=== PATIENT | male | born 1980 | race American Indian/Alaskan Native ===

== ENCOUNTER 2020-01-30 20:28 | Emergency (ER) | payer SELFPAY ==
[2020-01-30] MEDS ORDERED: Sodium Chloride 0.9% 10 ML Syringe FLUSH PRN (21:03)
[2020-01-30 21:45] LABS: ANION GAP 14.8 mEq/L (7-13); CHLORIDE,CL 101 mmol/L (98-107); SODIUM,NA 137 mmol/L (136-145)
[2020-01-30] MEDS ORDERED: Iopamidol 612 MG/ML 100 ML Bottle IVPUSH ONE (21:46)
[2020-01-30] MEDS ORDERED: Dexamethasone 4 MG/ML SDV IVPUSH ONE (21:55)
[2020-01-30] MEDS ORDERED: Sodium Chloride 0.9% 1,000 ML IV ONE (21:55)
--- NOTE | 2020-01-30 21:55 | CT ---
PROCEDURE INFORMATION: Exam: CT Neck With Contrast Exam date and time: 01/30/2020 9:25 PM Age: 39 years old Clinical indication: Abscess, tonsil; Additional info: ? Right peritonsillar abscess TECHNIQUE: Imaging protocol: Computed tomography images of the neck with intravenous contrast. Radiation optimization: All CT scans at this facility use at least one of these dose optimization techniques: automated exposure control; mA and/or kV adjustment per patient size (includes targeted exams where dose is matched to clinical indication); or iterative reconstruction. Contrast material: [id number]; Contrast volume: 75 ml; Contrast route: INTRAVENOUS (IV); COMPARISON: No relevant prior studies available. FINDINGS: Sinuses: Paranasal sinuses are clear. Nasopharynx: Unremarkable. Oropharynx: Prominent right tonsillar fullness. This soft tissue fullness measures 4.4 x 4 cm. There is no liquefaction or discrete abscess evident. The left tonsillar structures unremarkable. Hypopharynx: Unremarkable. Larynx: Unremarkable. Normal epiglottis. Retropharyngeal space: Unremarkable. Submandibular/Parotid glands: Parotid glands show fatty involution. Thyroid: Normal. No enlarged or calcified nodules. Lymph nodes: Right carotid sheath lymph nodes noted to be enlarged. Multiple enlarged lymph nodes are noted. The largest is 18 x 17 mm. There is also enlargement of right-sided posterior cervical chain lymph nodes. Trachea: Visualized trachea is unremarkable. Lungs: Lung apices are clear. Bones/joints: Unremarkable. No acute fracture. Soft tissues: Soft tissues of the superficial neck region are unremarkable. Subcutaneous fat is clear. IMPRESSION: 1. Prominent right tonsillar fullness without evidence of liquefaction or abscess formation at this time. 2. Right-sided carotid sheath adenopathy and posterior cervical chain adenopathy. 3. Fatty involution of parotid glands.
[2020-01-30] MEDS ORDERED: cefTRIAXone 2 GM in Sodium Chloride 0.9% 100 ML IV ONE (21:56)
[2020-01-30] MEDS ORDERED: Lidocaine 2% Viscous Solution 15 ML Cup PO ONE (22:16)
--- NOTE | 2020-01-30 22:44 | EDM.PDOC ---
ED HPI GENERAL MEDICAL PROBLEM - General Chief Complaint: ENT Problem Stated Complaint: THROAT UNABLE TO TALK Time Seen by Provider: 01/30/20 21:10 Source of Information: Reports: Patient, RN, RN Notes Reviewed History Limitations: Reports: No Limitations, Intoxication - History of Present Illness INITIAL COMMENTS - FREE TEXT/NARRATIVE: She is a 39-year-old male here today for concern about throat pain. Patient believes he has strep throat. He reports 3 days of throat pain, as well as associated runny nose, occasionally as well as occasional cough. Patient also reports right ear pain. No shortness of breath. Pain is severe. Patient is on no medications and has no other significant past medical history and has no allergies. He does smoke cigarettes, with last smoking done today. No alcohol or marijuana use. Patient uses methamphetamine and last used yesterday. He lives in [place] with his ex-girlfriend. Onset: Gradual Throat Pain Score (Numeric/FACES): 5 - Related Data Allergies Allergy/AdvReac Type Severity Reaction Status Date / Time No Known Allergies Allergy Verified 01/30/20 20:49 Home Meds: Home Meds . [No Known Home Meds] 01/30/20 [History] Past Medical History - Past Health History Medical/Surgical History: Denies Medical/Surgical History Social & Family History - Family History Family Medical History: Noncontributory - Tobacco Use Smoking Status *Q: Current Every Day Smoker Years of Tobacco use: 20 Packs/Tins Daily: 1 - Caffeine Use Caffeine Use: Reports: None - Recreational Drug Use Recreational Drug Use: Yes Drug Use in Last 12 Months: Yes Recreational Drug Type: Reports: Methamphetamine Recreational Drug Use Frequency: Weekly ED ROS ENT - Review of Systems Review Of Systems: Comprehensive ROS is negative, except as noted in HPI. ED EXAM, ENT - Physical Exam Exam: See Below Exam Limited By: No Limitations General Appearance: Alert, WD/WN, Mild Distress Eye Exam: Bilateral Eye: EOMI, Normal Inspection Ears: Normal External Exam, Normal Canal, Hearing Grossly Normal, Normal TMs Nose: Normal Inspection, Normal Mucousa, No Blood Mouth/Throat: Bleeding, Muffled Voice, Peritonsillar Mass, Pharyngeal Erythema, Throat Pain, Throat Swelling, Tonsillar Erythema, Tonsillar Swelling (Right), Uvular Deviation, Uvular Edema Head: Atraumatic, Normocephalic Neck: Normal Inspection, Supple, Non-Tender, Full Range of Motion, Lymphadenopathy (R) Respiratory/Chest: No Respiratory Distress, Lungs Clear, Normal Breath Sounds, No Accessory Muscle Use, Chest Non-Tender Cardiovascular: Normal Peripheral Pulses, Regular Rate, Rhythm, No Edema, No Gallop, No JVD, No Murmur, No Rub GI/Abdominal: Normal Bowel Sounds, Soft, Non-Tender, No Organomegaly, No Distention, No Abnormal Bruit, No Mass (Male) Exam: Deferred Rectal (Males) Exam: Deferred Back: Normal Inspection, Full Range of Motion Extremities: Normal Inspection, Normal Range of Motion, Non-Tender, No Pedal Edema, Normal Capillary Refill Neurological: Alert, Oriented, CN II-XII Intact, Normal Cognition, Normal Gait, Normal Reflexes, No Motor/Sensory Deficits Psychiatric: Normal Affect Skin: Warm, Dry, Other (Several pimples on the arms bilaterally) Lymphatic: Adenopathy (Right anterior cervical) Course - Vital Signs Last Recorded V/S: Last Vital Signs Temp 98.1 F 01/30/20 20:45 Pulse 90 01/30/20 20:45 Resp 16 01/30/20 20:45 BP 149/85 H 01/30/20 20:45 Pulse Ox 95 01/30/20 20:45 - Orders/Labs/Meds Orders: Active Orders 24 hr Category Date Time Status CBC WITH AUTO DIFF [HEME] Stat Lab 01/30/20 21:14 Results CULTURE BLOOD [BC] Routine Lab 01/30/20 22:15 Received CULTURE BLOOD [BC] Routine Lab 01/30/20 22:15 Received MANUAL DIFFERENTIAL QA/NC [HEME] Stat Lab 01/30/20 21:14 Results Peripheral IV Insertion Adult [OM.PC] Stat Oth 01/30/20 21:03 Ordered Labs: Laboratory Tests 01/30/20 01/30/20 01/30/20 Range/Units 21:14 21:14 21:14 WBC 15.1 H (5.0-10.0) 10^3/uL RBC 4.42 L (4.6-6.2) 10^6/uL Hgb 14.0 (14.0-18.0) g/dL Hct 40.7 (40.0-54.0) % MCV 92.1 (80-100) fL MCH 31.7 (27.0-34.0) pg MCHC 34.4 (33.0-35.0) g/dL Plt Count 380 (150-450) 10^3/uL Neut % (Auto) 67.7 (42.2-75.2) % Lymph % (Auto) 16.0 L (20.5-50.1) % Craig % (Auto) 10.2 H (2-8) % Eos % (Auto) 5.8 H (1.0-3.0) % Baso % (Auto) 0.3 (0.0-1.0) % Add Manual Diff Yes Sodium 137 (136-145) mmol/L Potassium 3.8 (3.5-5.1) mmol/L Chloride 101 (98-107) mmol/L Carbon Dioxide 25 (21-32) mmol/L Anion Gap 14.8 H (7-13) mEq/L BUN 16 (7-18) mg/dL Creatinine 0.92 (0.70-1.30) mg/dL Est Cr Clr Drug Dosing 118.32 mL/min Estimated GFR (MDRD) > 60 BUN/Creatinine Ratio 17.4 (No establ ref range) Glucose 94 (74-99) mg/dL Lactic Acid 0.9 (0.4-2.0) mmol/L Calcium 8.7 (8.5-10.1) mg/dL Total Bilirubin 0.6 (0.2-1.0) mg/dL AST 70 H (15-37) U/L ALT 84 H (16-63) U/L Alkaline Phosphatase 85 (46-116) U/L Total Protein 8.3 H (6.4-8.2) g/dL Albumin 3.0 L (3.4-5.0) g/dL Globulin 5.3 Albumin/Globulin Ratio 0.57 Urine Opiates Screen (NEGATIVE) Ur Oxycodone Screen (NEGATIVE) Urine Methadone Screen (NEGATIVE) Ur Barbiturates Screen (NEGATIVE) U Tricyclic Antidepress (NEGATIVE) Ur Phencyclidine Scrn (NEGATIVE) Ur Amphetamine Screen (NEGATIVE) U Methamphetamines Scrn (NEGATIVE) Urine MDMA Screen (NEGATIVE) U Benzodiazepines Scrn (NEGATIVE) Urine Cocaine Screen (NEGATIVE) U Marijuana (THC) Screen (NEGATIVE) 01/30/20 Range/Units 21:55 WBC (5.0-10.0) 10^3/uL RBC (4.6-6.2) 10^6/uL Hgb (14.0-18.0) g/dL Hct (40.0-54.0) % MCV (80-100) fL MCH (27.0-34.0) pg MCHC (33.0-35.0) g/dL Plt Count (150-450) 10^3/uL Neut % (Auto) (42.2-75.2) % Lymph % (Auto) (20.5-50.1) % Craig % (Auto) (2-8) % Eos % (Auto) (1.0-3.0) % Baso % (Auto) (0.0-1.0) % Add Manual Diff Sodium (136-145) mmol/L Potassium (3.5-5.1) mmol/L Chloride (98-107) mmol/L Carbon Dioxide (21-32) mmol/L Anion Gap (7-13) mEq/L BUN (7-18) mg/dL Creatinine (0.70-1.30) mg/dL Est Cr Clr Drug Dosing mL/min Estimated GFR (MDRD) BUN/Creatinine Ratio (No establ ref range) Glucose (74-99) mg/dL Lactic Acid (0.4-2.0) mmol/L Calcium (8.5-10.1) mg/dL Total Bilirubin (0.2-1.0) mg/dL AST (15-37) U/L ALT (16-63) U/L Alkaline Phosphatase (46-116) U/L Total Protein (6.4-8.2) g/dL Albumin (3.4-5.0) g/dL Globulin Albumin/Globulin Ratio Urine Opiates Screen Negative (NEGATIVE) Ur Oxycodone Screen Negative (NEGATIVE) Urine Methadone Screen Negative (NEGATIVE) Ur Barbiturates Screen Negative (NEGATIVE) U Tricyclic Antidepress Negative (NEGATIVE) Ur Phencyclidine Scrn Negative (NEGATIVE) Ur Amphetamine Screen Positive H (NEGATIVE) U Methamphetamines Scrn Positive H (NEGATIVE) Urine MDMA Screen Positive H (NEGATIVE) U Benzodiazepines Scrn Negative (NEGATIVE) Urine Cocaine Screen Negative (NEGATIVE) U Marijuana (THC) Screen Negative (NEGATIVE) Meds: Medications Discontinued Medications Generic Name Dose Route Start Last Admin Trade Name Freq PRN Reason Stop Dose Admin Dexamethasone 10 mg 01/30/20 21:55 01/30/20 22:16 Dexamethasone IVPUSH 01/30/20 21:56 10 mg ONETIME ONE Administration Sodium Chloride 1,000 mls @ 999 mls/hr 01/30/20 21:55 01/30/20 22:16 Normal Saline IV 01/30/20 22:55 999 mls/hr .BOLUS ONE Administration Ceftriaxone Sodium 2 gm/ 100 mls @ 200 mls/hr 01/30/20 21:56 01/30/20 22:21 Sodium Chloride IV 01/30/20 22:25 200 mls/hr ONETIME ONE Administration Iopamidol 100 ml 01/30/20 21:46 01/30/20 21:48 Isovue-300 (61%) IVPUSH 01/30/20 21:47 75 ml ONETIME ONE Administration Lidocaine HCl 15 ml 01/30/20 22:16 01/30/20 22:26 Xylocaine 2% Viscous PO 01/30/20 22:17 15 ml ONETIME ONE Administration Sodium Chloride 10 ml 01/30/20 21:03 01/30/20 21:15 Saline Flush FLUSH 10 ml ASDIRECTED PRN Administration Keep Vein Open Departure - Departure Time of Disposition: 23:15 Disposition: Home, Self-Care 01 Condition: Fair Clinical Impression: Tonsillitis - Discharge Information *PRESCRIPTION DRUG MONITORING PROGRAM REVIEWED*: No *COPY OF PRESCRIPTION DRUG MONITORING REPORT IN PATIENT MAHENDRA: No Instructions: Tonsillitis, Dmyk-[id number] Forms: ED Department Discharge Additional Instructions: Rx: Viscous lidocaine, amoxicillin, dexamethasone Clear liquids, cold liquids Follow-up with your primary care provider the end of this week, return to the ER with any worsening of problems Return to the ER with any difficulty breathing May use Tylenol and/or ibuprofen as directed for pain Sepsis Event Note (ED) - Evaluation Sepsis Screening Result: No Definite Risk - Focused Exam Vital Signs: Vital Signs Temp Pulse Resp BP Pulse Ox 01/30/20 20:45 98.1 F 90 16 149/85 H 95 - My Orders Last 24 Hours: My Active Orders 01/30/20 21:03 Peripheral IV Insertion Adult [OM.PC] Stat 01/30/20 21:14 CBC WITH AUTO DIFF [HEME] Stat MANUAL DIFFERENTIAL QA/NC [HEME] Stat 01/30/20 22:15 CULTURE BLOOD [BC] Routine CULTURE BLOOD [BC] Routine - Assessment/Plan Last 24 Hours: My Active Orders 01/30/20 21:03 Peripheral IV Insertion Adult [OM.PC] Stat 01/30/20 21:14 CBC WITH AUTO DIFF [HEME] Stat MANUAL DIFFERENTIAL QA/NC [HEME] Stat 01/30/20 22:15 CULTURE BLOOD [BC] Routine CULTURE BLOOD [BC] Routine
== END 2020-01-30 23:06 | disposition home or self-care (01) ==
LOC: DL.ED 20:28
DX: J03.90 Acute tonsillitis, unspecified (principal); F17.210 Nicotine dependence, cigarettes, uncomplicated
CPT/HCPCS: 36415; 70491; 80053; 80305; 83605; 85025; 87040; 87430; 96365; 96375; 99283; A9270; J0696; J1100; J7030; J7050; Q9967

== ENCOUNTER 2020-04-17 06:14 | Emergency (ER) | payer SELFPAY ==
[~2020-04-17 06:14] MED LIST: LORazepam 2 MG/ML SDV ONE
[2020-04-17] MEDS ORDERED: LORazepam 2 MG/ML SDV IV ONE (06:15)
[2020-04-17] MEDS ORDERED: LORazepam 2 MG/ML SDV ONE ×2 (06:27→06:46)
[2020-04-17 07:00] LABS: ANION GAP 15.1 mEq/L (7-13); CHLORIDE,CL 101 mmol/L (98-107); SODIUM,NA 141 mmol/L (136-145)
[2020-04-17 07:02] LABS: ACETAMINOPHEN 0 ug/mL (10-30 (Therapeutic))
[2020-04-17] MEDS ORDERED: diphenhydrAMINE 50 MG/ML SDV ONE (07:15)
[2020-04-17] MEDS ORDERED: Haloperidol Lactate 5 MG/ML SDV ONE (07:15)
--- NOTE | 2020-04-17 07:16 | CT ---
PROCEDURE INFORMATION: Exam: CT Head Without Contrast Exam date and time: 04/17/2020 6:56 AM Age: 39 years old Clinical indication: Altered mental status/memory loss; Confusion or disorientation TECHNIQUE: Imaging protocol: Computed tomography of the head without contrast. Radiation optimization: All CT scans at this facility use at least one of these dose optimization techniques: automated exposure control; mA and/or kV adjustment per patient size (includes targeted exams where dose is matched to clinical indication); or iterative reconstruction. COMPARISON: No relevant prior studies available. FINDINGS: Brain: Normal. No hemorrhage. Unremarkable white matter. No mass effect. Cerebral ventricles: No ventriculomegaly. Bones/joints: Unremarkable. No acute fracture. Paranasal sinuses: Visualized sinuses are unremarkable. No fluid levels. Mastoid air cells: Visualized mastoid air cells are well aerated. Soft tissues: Unremarkable. IMPRESSION: No acute intracranial abnormality.
--- NOTE | 2020-04-17 07:19 | EDM.PDOC ---
ED HPI GENERAL MEDICAL PROBLEM - General Chief Complaint: Drug or Alcohol Abuse Stated Complaint: AMBULANCE - Related Data Allergies Allergy/AdvReac Type Severity Reaction Status Date / Time No Known Allergies Allergy Verified 01/30/20 20:49 Home Meds: Home Meds . [No Known Home Meds] 01/30/20 [History] Past Medical History - Past Health History Medical/Surgical History: Denies Medical/Surgical History Social & Family History - Family History Family Medical History: No Pertinent Family History - Caffeine Use Caffeine Use: Reports: None Course - Vital Signs Last Recorded V/S: Last Vital Signs Temp 97.3 F 04/17/20 06:45 Pulse 107 H 04/17/20 06:45 Resp 24 H 04/17/20 06:45 BP 122/79 04/17/20 06:45 Pulse Ox 100 04/17/20 06:45 - Orders/Labs/Meds Orders: Active Orders 24 hr Category Date Time Status UA W/MICROSCOPIC [URIN] Stat Lab 04/17/20 06:35 Results Labs: Laboratory Tests 04/17/20 04/17/20 04/17/20 Range/Units 06:27 06:27 06:27 WBC 8.0 (5.0-10.0) 10^3/uL RBC 5.01 (4.6-6.2) 10^6/uL Hgb 16.5 D (14.0-18.0) g/dL Hct 47.8 (40.0-54.0) % MCV 95.4 D (80-100) fL MCH 32.9 (27.0-34.0) pg MCHC 34.5 (33.0-35.0) g/dL Plt Count 252 D (150-450) 10^3/uL Neut % (Auto) 70.8 (42.2-75.2) % Lymph % (Auto) 22.4 (20.5-50.1) % Harper % (Auto) 2.7 (2-8) % Eos % (Auto) 3.7 H (1.0-3.0) % Baso % (Auto) 0.4 (0.0-1.0) % Sodium 141 (136-145) mmol/L Potassium 4.1 (3.5-5.1) mmol/L Chloride 101 (98-107) mmol/L Carbon Dioxide 29 (21-32) mmol/L Anion Gap 15.1 H (7-13) mEq/L BUN 10 (7-18) mg/dL Creatinine 1.07 (0.70-1.30) mg/dL Est Cr Clr Drug Dosing TNP Estimated GFR (MDRD) > 60 BUN/Creatinine Ratio 9.3 (No establ ref range) Glucose 113 H (74-99) mg/dL Calcium 8.8 (8.5-10.1) mg/dL Total Bilirubin 0.3 (0.2-1.0) mg/dL AST 112 H (15-37) U/L ALT 239 H (16-63) U/L Alkaline Phosphatase 67 (46-116) U/L Total Protein 7.8 (6.4-8.2) g/dL Albumin 3.6 (3.4-5.0) g/dL Globulin 4.2 Albumin/Globulin Ratio 0.9 Amylase 28 (25-115) U/L Lipase 132 (73-393) U/L Urine Color (YELLOW) Urine Appearance (CLEAR) Urine pH (5.0-9.0) Ur Specific [place] (1.005-1.030) Urine Protein (NEGATIVE) Urine Glucose (UA) (NEGATIVE) Urine Ketones (NEGATIVE) Urine Occult Blood (NEGATIVE) Urine Nitrite (NEGATIVE) Urine Bilirubin (NEGATIVE) Urine Urobilinogen (0.2-1.0) mg/dL Ur Leukocyte Esterase (NEGATIVE) Salicylates < 2.8 L (2.8-20(Therapeutic)) mg/dL Urine Opiates Screen (NEGATIVE) Ur Oxycodone Screen (NEGATIVE) Urine Methadone Screen (NEGATIVE) Acetaminophen 0 L (10-30 (Therapeutic)) ug/mL Ur Barbiturates Screen (NEGATIVE) U Tricyclic Antidepress (NEGATIVE) Ur Phencyclidine Scrn (NEGATIVE) Ur Amphetamine Screen (NEGATIVE) U Methamphetamines Scrn (NEGATIVE) Urine MDMA Screen (NEGATIVE) U Benzodiazepines Scrn (NEGATIVE) Urine Cocaine Screen (NEGATIVE) U Marijuana (THC) Screen (NEGATIVE) Ethyl Alcohol < 3 (0) mg/dL 04/17/20 04/17/20 Range/Units 06:35 06:35 WBC (5.0-10.0) 10^3/uL RBC (4.6-6.2) 10^6/uL Hgb (14.0-18.0) g/dL Hct (40.0-54.0) % MCV (80-100) fL MCH (27.0-34.0) pg MCHC (33.0-35.0) g/dL Plt Count (150-450) 10^3/uL Neut % (Auto) (42.2-75.2) % Lymph % (Auto) (20.5-50.1) % Harper % (Auto) (2-8) % Eos % (Auto) (1.0-3.0) % Baso % (Auto) (0.0-1.0) % Sodium (136-145) mmol/L Potassium (3.5-5.1) mmol/L Chloride (98-107) mmol/L Carbon Dioxide (21-32) mmol/L Anion Gap (7-13) mEq/L BUN (7-18) mg/dL Creatinine (0.70-1.30) mg/dL Est Cr Clr Drug Dosing Estimated GFR (MDRD) BUN/Creatinine Ratio (No establ ref range) Glucose (74-99) mg/dL Calcium (8.5-10.1) mg/dL Total Bilirubin (0.2-1.0) mg/dL AST (15-37) U/L ALT (16-63) U/L Alkaline Phosphatase (46-116) U/L Total Protein (6.4-8.2) g/dL Albumin (3.4-5.0) g/dL Globulin Albumin/Globulin Ratio Amylase (25-115) U/L Lipase (73-393) U/L Urine Color Yellow (YELLOW) Urine Appearance Slightly cloudy (CLEAR) Urine pH 6.0 (5.0-9.0) Ur Specific [place] >= 1.030 (1.005-1.030) Urine Protein 100 H (NEGATIVE) Urine Glucose (UA) Negative (NEGATIVE) Urine Ketones Negative (NEGATIVE) Urine Occult Blood Small H (NEGATIVE) Urine Nitrite Negative (NEGATIVE) Urine Bilirubin Negative (NEGATIVE) Urine Urobilinogen 0.2 (0.2-1.0) mg/dL Ur Leukocyte Esterase Negative (NEGATIVE) Salicylates (2.8-20(Therapeutic)) mg/dL Urine Opiates Screen Negative (NEGATIVE) Ur Oxycodone Screen Negative (NEGATIVE) Urine Methadone Screen Negative (NEGATIVE) Acetaminophen (10-30 (Therapeutic)) ug/mL Ur Barbiturates Screen Negative (NEGATIVE) U Tricyclic Antidepress Negative (NEGATIVE) Ur Phencyclidine Scrn Negative (NEGATIVE) Ur Amphetamine Screen Positive H (NEGATIVE) U Methamphetamines Scrn Positive H (NEGATIVE) Urine MDMA Screen Positive H (NEGATIVE) U Benzodiazepines Scrn Negative (NEGATIVE) Urine Cocaine Screen Positive H (NEGATIVE) U Marijuana (THC) Screen Negative (NEGATIVE) Ethyl Alcohol (0) mg/dL Meds: Medications Discontinued Medications Generic Name Dose Route Start Last Admin Trade Name Freq PRN Reason Stop Dose Admin Lorazepam Confirm 04/17/20 06:14 04/17/20 06:15 Ativan Administered 04/17/20 06:15 1 mg Dose Administration 2 mg .ROUTE .STK-MED ONE Lorazepam Confirm 04/17/20 06:27 04/17/20 06:29 Ativan Administered 04/17/20 06:28 2 mg Dose Administration 2 mg .ROUTE .STK-MED ONE Lorazepam Confirm 04/17/20 06:46 Ativan Administered 04/17/20 06:47 Dose 2 mg .ROUTE .STK-MED ONE Departure - Discharge Information Forms: ED Department Discharge Sepsis Event Note (ED) - Evaluation Sepsis Screening Result: No Definite Risk - Focused Exam Vital Signs: Vital Signs Temp Pulse Resp BP Pulse Ox 04/17/20 06:45 97.3 F 107 H 24 H 122/79 100
--- NOTE | 2020-04-17 07:22 | EDM.PDOC ---
ED HPI GENERAL MEDICAL PROBLEM - General Source of Information: Reports: Patient, EMS History Limitations: Reports: Altered Mental Status <Carolina Crowley - Last Filed: 04/18/20 03:19> - History of Present Illness Onset: Today, Sudden <Jessica Mas - Last Filed: 04/18/20 08:05> - General Chief Complaint: Drug or Alcohol Abuse Stated Complaint: AMBULANCE Time Seen by Provider: 04/17/20 06:45 - History of Present Illness INITIAL COMMENTS - FREE TEXT/NARRATIVE: ED via [facility] with report of being found lying in car parked at residence unresponsive agonal breathing. EMS administered 8mg of Narcan, patient aroused combative, then gave 5 mg versed IM as unable to access IV. 2 IO attempts lower extremities. nasal trumpet left nare on arrival Glucose 197 on scene. No obvious signs of trauma. 2 vials of narcan lying on drivers side floor, No obvious paraphernalia in sight. (Carolina Crowley) - Related Data Allergies Allergy/AdvReac Type Severity Reaction Status Date / Time No Known Allergies Allergy Verified 01/30/20 20:49 Home Meds: Home Meds . [No Known Home Meds] 01/30/20 [History] Past Medical History - Past Health History Medical/Surgical History: Denies Medical/Surgical History <Carolina Crowley - Last Filed: 04/18/20 03:19> Social & Family History - Family History Family Medical History: No Pertinent Family History - Caffeine Use Caffeine Use: Reports: None <Carolina Crowley - Last Filed: 04/18/20 03:19> ED ROS GENERAL - Review of Systems Review Of Systems: Unable To Obtain Reason Not Obtained: altered mental <Carolina Crowley - Last Filed: 04/18/20 03:19> - Physical Exam Exam: See Below Exam Limited By: Combative/Threatening General Appearance: Obtunded, Obese, Other (incontinent urine) Eye Exam: Bilateral Eye: EOMI, PERRL (2mm) Ears: Normal External Exam, Hearing Grossly Normal Nose: No: No Blood (blood noted bilateral nares, EMS reported none prior to placement of nasal trumpet) Head Exam: Atraumatic, Normocephalic Neck: Normal Inspection Respiratory/Chest: No Respiratory Distress Cardiovascular: Normal Peripheral Pulses, Regular Rate, Rhythm GI/Abdominal: Normal Bowel Sounds, Soft, Other (umbilical hernia) (Male) Exam: Other (incontinent) Neuro Exam (Abbreviated): Inattentive, Other (yelling out, brief momentary periods speech clear enough to understand and appropriate, generally hallucinating, yelling fighting restraints, admits to using "jungle juice tonight. ). No: Normal Cognition Extremities: Normal Range of Motion Skin Exam: Warm, Dry <Carolina Crowley - Last Filed: 04/18/20 03:19> Course <Carolina Crowley - Last Filed: 04/18/20 03:19> <Jessica Mas - Last Filed: 04/18/20 08:05> - Vital Signs Last Recorded V/S: Last Vital Signs Temp 97.2 F 04/17/20 10:51 Pulse 94 04/17/20 10:51 Resp 19 04/17/20 10:51 BP 128/69 04/17/20 10:51 Pulse Ox 98 04/17/20 10:51 - Orders/Labs/Meds Orders: Active Orders 24 hr Category Date Time Status Initiate/Renew Violent-Self Destructive Restraints >/= Care 04/17/20 08:30 Ordered 18yo Q4H Desired Level of Sedation (RASS) [AST] Click to Edit Oth 04/17/20 08:27 Ordered Labs: Laboratory Tests 04/17/20 04/17/20 04/17/20 Range/Units 06:27 06:27 06:27 WBC 8.0 (5.0-10.0) 10^3/uL RBC 5.01 (4.6-6.2) 10^6/uL Hgb 16.5 D (14.0-18.0) g/dL Hct 47.8 (40.0-54.0) % MCV 95.4 D (80-100) fL MCH 32.9 (27.0-34.0) pg MCHC 34.5 (33.0-35.0) g/dL Plt Count 252 D (150-450) 10^3/uL Neut % (Auto) 70.8 (42.2-75.2) % Lymph % (Auto) 22.4 (20.5-50.1) % Lewis % (Auto) 2.7 (2-8) % Eos % (Auto) 3.7 H (1.0-3.0) % Baso % (Auto) 0.4 (0.0-1.0) % Sodium 141 (136-145) mmol/L Potassium 4.1 (3.5-5.1) mmol/L Chloride 101 (98-107) mmol/L Carbon Dioxide 29 (21-32) mmol/L Anion Gap 15.1 H (7-13) mEq/L BUN 10 (7-18) mg/dL Creatinine 1.07 (0.70-1.30) mg/dL Est Cr Clr Drug Dosing TNP Estimated GFR (MDRD) > 60 BUN/Creatinine Ratio 9.3 (No establ ref range) Glucose 113 H (74-99) mg/dL Calcium 8.8 (8.5-10.1) mg/dL Total Bilirubin 0.3 (0.2-1.0) mg/dL AST 112 H (15-37) U/L ALT 239 H (16-63) U/L Alkaline Phosphatase 67 (46-116) U/L Troponin I (0.000-0.056) ng/mL Total Protein 7.8 (6.4-8.2) g/dL Albumin 3.6 (3.4-5.0) g/dL Globulin 4.2 Albumin/Globulin Ratio 0.9 Amylase 28 (25-115) U/L Lipase 132 (73-393) U/L Urine Color (YELLOW) Urine Appearance (CLEAR) Urine pH (5.0-9.0) Ur Specific [place] (1.005-1.030) Urine Protein (NEGATIVE) Urine Glucose (UA) (NEGATIVE) Urine Ketones (NEGATIVE) Urine Occult Blood (NEGATIVE) Urine Nitrite (NEGATIVE) Urine Bilirubin (NEGATIVE) Urine Urobilinogen (0.2-1.0) mg/dL Ur Leukocyte Esterase (NEGATIVE) Urine RBC /HPF Urine WBC (0-5/HPF) /HPF Ur Epithelial Cells (NOT SEEN) /HPF Amorphous Sediment (NOT SEEN) /HPF Urine Bacteria (0-FEW/HPF) /HPF Urine Mucus (NOT SEEN) /LPF Salicylates < 2.8 L (2.8-20(Therapeutic)) mg/dL Urine Opiates Screen (NEGATIVE) Ur Oxycodone Screen (NEGATIVE) Urine Methadone Screen (NEGATIVE) Acetaminophen 0 L (10-30 (Therapeutic)) ug/mL Ur Barbiturates Screen (NEGATIVE) U Tricyclic Antidepress (NEGATIVE) Ur Phencyclidine Scrn (NEGATIVE) Ur Amphetamine Screen (NEGATIVE) U Methamphetamines Scrn (NEGATIVE) Urine MDMA Screen (NEGATIVE) U Benzodiazepines Scrn (NEGATIVE) Urine Cocaine Screen (NEGATIVE) U Marijuana (THC) Screen (NEGATIVE) Ethyl Alcohol < 3 (0) mg/dL SARS CoV-2 RNA Rapid MIRANDA (NEGATIVE) 04/17/20 04/17/20 04/17/20 Range/Units 06:27 06:35 06:35 WBC (5.0-10.0) 10^3/uL RBC (4.6-6.2) 10^6/uL Hgb (14.0-18.0) g/dL Hct (40.0-54.0) % MCV (80-100) fL MCH (27.0-34.0) pg MCHC (33.0-35.0) g/dL Plt Count (150-450) 10^3/uL Neut % (Auto) (42.2-75.2) % Lymph % (Auto) (20.5-50.1) % Lewis % (Auto) (2-8) % Eos % (Auto) (1.0-3.0) % Baso % (Auto) (0.0-1.0) % Sodium (136-145) mmol/L Potassium (3.5-5.1) mmol/L Chloride (98-107) mmol/L Carbon Dioxide (21-32) mmol/L Anion Gap (7-13) mEq/L BUN (7-18) mg/dL Creatinine (0.70-1.30) mg/dL Est Cr Clr Drug Dosing Estimated GFR (MDRD) BUN/Creatinine Ratio (No establ ref range) Glucose (74-99) mg/dL Calcium (8.5-10.1) mg/dL Total Bilirubin (0.2-1.0) mg/dL AST (15-37) U/L ALT (16-63) U/L Alkaline Phosphatase (46-116) U/L Troponin I 0.022 (0.000-0.056) ng/mL Total Protein (6.4-8.2) g/dL Albumin (3.4-5.0) g/dL Globulin Albumin/Globulin Ratio Amylase (25-115) U/L Lipase (73-393) U/L Urine Color Yellow (YELLOW) Urine Appearance Slightly cloudy (CLEAR) Urine pH 6.0 (5.0-9.0) Ur Specific [place] >= 1.030 (1.005-1.030) Urine Protein 100 H (NEGATIVE) Urine Glucose (UA) Negative (NEGATIVE) Urine Ketones Negative (NEGATIVE) Urine Occult Blood Small H (NEGATIVE) Urine Nitrite Negative (NEGATIVE) Urine Bilirubin Negative (NEGATIVE) Urine Urobilinogen 0.2 (0.2-1.0) mg/dL Ur Leukocyte Esterase Negative (NEGATIVE) Urine RBC 40-50 H /HPF Urine WBC 0-5 (0-5/HPF) /HPF Ur Epithelial Cells Occasional (NOT SEEN) /HPF Amorphous Sediment Few (NOT SEEN) /HPF Urine Bacteria Occasional (0-FEW/HPF) /HPF Urine Mucus Moderate H (NOT SEEN) /LPF Salicylates (2.8-20(Therapeutic)) mg/dL Urine Opiates Screen Negative (NEGATIVE) Ur Oxycodone Screen Negative (NEGATIVE) Urine Methadone Screen Negative (NEGATIVE) Acetaminophen (10-30 (Therapeutic)) ug/mL Ur Barbiturates Screen Negative (NEGATIVE) U Tricyclic Antidepress Negative (NEGATIVE) Ur Phencyclidine Scrn Negative (NEGATIVE) Ur Amphetamine Screen Positive H (NEGATIVE) U Methamphetamines Scrn Positive H (NEGATIVE) Urine MDMA Screen Positive H (NEGATIVE) U Benzodiazepines Scrn Negative (NEGATIVE) Urine Cocaine Screen Positive H (NEGATIVE) U Marijuana (THC) Screen Negative (NEGATIVE) Ethyl Alcohol (0) mg/dL SARS CoV-2 RNA Rapid MIRANDA (NEGATIVE) 04/17/20 Range/Units 07:50 WBC (5.0-10.0) 10^3/uL RBC (4.6-6.2) 10^6/uL Hgb (14.0-18.0) g/dL Hct (40.0-54.0) % MCV (80-100) fL MCH (27.0-34.0) pg MCHC (33.0-35.0) g/dL Plt Count (150-450) 10^3/uL Neut % (Auto) (42.2-75.2) % Lymph % (Auto) (20.5-50.1) % Lewis % (Auto) (2-8) % Eos % (Auto) (1.0-3.0) % Baso % (Auto) (0.0-1.0) % Sodium (136-145) mmol/L Potassium (3.5-5.1) mmol/L Chloride (98-107) mmol/L Carbon Dioxide (21-32) mmol/L Anion Gap (7-13) mEq/L BUN (7-18) mg/dL Creatinine (0.70-1.30) mg/dL Est Cr Clr Drug Dosing Estimated GFR (MDRD) BUN/Creatinine Ratio (No establ ref range) Glucose (74-99) mg/dL Calcium (8.5-10.1) mg/dL Total Bilirubin (0.2-1.0) mg/dL AST (15-37) U/L ALT (16-63) U/L Alkaline Phosphatase (46-116) U/L Troponin I (0.000-0.056) ng/mL Total Protein (6.4-8.2) g/dL Albumin (3.4-5.0) g/dL Globulin Albumin/Globulin Ratio Amylase (25-115) U/L Lipase (73-393) U/L Urine Color (YELLOW) Urine Appearance (CLEAR) Urine pH (5.0-9.0) Ur Specific [place] (1.005-1.030) Urine Protein (NEGATIVE) Urine Glucose (UA) (NEGATIVE) Urine Ketones (NEGATIVE) Urine Occult Blood (NEGATIVE) Urine Nitrite (NEGATIVE) Urine Bilirubin (NEGATIVE) Urine Urobilinogen (0.2-1.0) mg/dL Ur Leukocyte Esterase (NEGATIVE) Urine RBC /HPF Urine WBC (0-5/HPF) /HPF Ur Epithelial Cells (NOT SEEN) /HPF Amorphous Sediment (NOT SEEN) /HPF Urine Bacteria (0-FEW/HPF) /HPF Urine Mucus (NOT SEEN) /LPF Salicylates (2.8-20(Therapeutic)) mg/dL Urine Opiates Screen (NEGATIVE) Ur Oxycodone Screen (NEGATIVE) Urine Methadone Screen (NEGATIVE) Acetaminophen (10-30 (Therapeutic)) ug/mL Ur Barbiturates Screen (NEGATIVE) U Tricyclic Antidepress (NEGATIVE) Ur Phencyclidine Scrn (NEGATIVE) Ur Amphetamine Screen (NEGATIVE) U Methamphetamines Scrn (NEGATIVE) Urine MDMA Screen (NEGATIVE) U Benzodiazepines Scrn (NEGATIVE) Urine Cocaine Screen (NEGATIVE) U Marijuana (THC) Screen (NEGATIVE) Ethyl Alcohol (0) mg/dL SARS CoV-2 RNA Rapid MIRANDA Negative (NEGATIVE) Meds: Medications Discontinued Medications Generic Name Dose Route Start Last Admin Trade Name Freq PRN Reason Stop Dose Admin Diphenhydramine HCl Confirm 04/17/20 07:15 04/17/20 07:50 Benadryl Administered 04/17/20 07:16 Not Given Dose 50 mg .ROUTE .STK-MED ONE Diphenhydramine HCl 50 mg 04/17/20 07:42 04/17/20 07:19 Benadryl IVPUSH 04/17/20 07:43 50 mg ONETIME ONE Administration Haloperidol Lactate Confirm 04/17/20 07:15 04/17/20 07:49 Haldol Administered 04/17/20 07:16 Not Given Dose 5 mg .ROUTE .STK-MED ONE Haloperidol Lactate 5 mg 04/17/20 07:42 04/17/20 07:19 Haldol IM 04/17/20 07:43 5 mg ONETIME ONE Administration Midazolam HCl 50 mg/ Sodium 50 mls @ 0.5 mls/hr 04/17/20 08:30 04/17/20 09:12 Chloride IV 0.5 mg/hr ASDIRECTED ROSEMARY 0.5 mls/hr Administration Protocol 0.5 MG/HR Propofol 100 mls @ 78.466 mls/hr 04/17/20 08:30 04/17/20 10:46 Diprivan 100 Ml IV 60 mcg/kg/min .TITRATE ROSEMARY 47.079 mls/hr Administration Protocol 100 MCG/KG/MIN Lorazepam Confirm 04/17/20 06:14 04/17/20 06:15 Ativan Administered 04/17/20 06:15 1 mg Dose Administration 2 mg .ROUTE .STK-MED ONE Lorazepam Confirm 04/17/20 06:27 04/17/20 06:29 Ativan Administered 04/17/20 06:28 2 mg Dose Administration 2 mg .ROUTE .STK-MED ONE Lorazepam Confirm 04/17/20 06:46 Ativan Administered 04/17/20 06:47 Dose 2 mg .ROUTE .STK-MED ONE - Radiology Interpretation Free Text/Narrative:: Head CT wo contrast: [facility] [place] [facility] Final Radiology Report Call: [phone] assistance Online chat: [email or web address] Name: GRABIEL MULLINS Age: 39Years M Date: 04/17/2020 SSN: -- : [id number] Study: CT HEAD WO CONT Requesting Physician: CAROLINA CROWLEY Images: [id number] Addl Studies: Provided Clinical History: altered mental Contrast: Without Contrast Medium: Contrast Amount: Contrast Method: CONFIDENTIALITY STATEMENT This report is intended only for use by the referring physician, and only in accordance with law. If you received this in error, call [phone]. Page 1 of 1 PROCEDURE INFORMATION: Exam: CT Head Without Contrast Exam date and time: 04/17/2020 6:56 AM Age: 39 years old Clinical indication: Altered mental status/memory loss; Confusion or disorientation TECHNIQUE: Imaging protocol: Computed tomography of the head without contrast. Radiation optimization: All CT scans at this facility use at least one of these dose optimization techniques: automated exposure control; mA and/or kV adjustment per patient size (includes targeted exams where dose is matched to clinical indication); or iterative reconstruction. COMPARISON: No relevant prior studies available. FINDINGS: Brain: Normal. No hemorrhage. Unremarkable white matter. No mass effect. Cerebral ventricles: No ventriculomegaly. Bones/joints: Unremarkable. No acute fracture. Paranasal sinuses: Visualized sinuses are unremarkable. No fluid levels. Mastoid air cells: Visualized mastoid air cells are well aerated. Soft tissues: Unremarkable. IMPRESSION: No acute intracranial abnormality. Thank you for allowing us to participate in the care of your patient. Dictated and Authenticated by: Sheree Mckeon MD 04/17/2020 7:16 AM Central Time ([place] & [place]) Chest xray: PROCEDURE INFORMATION: Exam: XR Chest, 1 View Exam date and time: 04/17/2020 7:48 AM Age: 39 years old Clinical indication: Device placement; Additional info: Post intubation TECHNIQUE: Imaging protocol: XR of the chest Views: 1 view. COMPARISON: No relevant prior studies available. FINDINGS: Tubes, catheters and devices: Endotracheal tube is in place with tip approximately 3 cm above the bruno. Nasogastric tube is present with tip in the stomach. Lungs: Hypoinflation of the lungs which accentuates pulmonary markings. Mild infiltrate in the upper lungs cannot be excluded. Pleural space: Unremarkable. No pleural effusion. No pneumothorax. Heart/Mediastinum: Unremarkable. No cardiomegaly. Bones/joints: Unremarkable. IMPRESSION: Hypoinflation of the lungs which accentuates pulmonary markings. Mild infiltrate in the upper lungs cannot be excluded. Remainder of findings as described above. Thank you for allowing us to participate in the care of your patient. 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 CT head attempted. 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 (Carolina Crowley) 04/17/20 08:06 0716: [facility] unsure if they are able to take patient. State they will call back. 0719: [place] on diversion 0720: [facility], full, on diversion, placed on waiting list 0722: [facility], No, full, on diversion 0724: [facility], No, full, on diversion 0736: [place], No, full 0738: [place]: Discussed case with Dr. Lopez who states this is more than his small hospital can handle at this time. There are beds available, but he does not think the patient is appropriate for them. 0758: [facility] declined patient [place] assisting in trying to find placement for the patient. [place], [place], etc. full Patient was intubated per José Miguel Yanes CRNA. 04/17/20 08:11 Discussed patient case with Dr. Morin about keeping the patient on the medical floor on the vent until transfer is available. He accepted the patient. (Jessica Mas) Departure - Departure Time of Disposition: 11:20 Condition: Undetermined - Discharge Information *PRESCRIPTION DRUG MONITORING PROGRAM REVIEWED*: No *COPY OF PRESCRIPTION DRUG MONITORING REPORT IN PATIENT MAHENDRA: No <Carolina Crowley - Last Filed: 04/18/20 03:19> <Jessica Mas - Last Filed: 04/18/20 08:05> - Departure Disposition: DC/Tfer to Acute Hospital 02 Clinical Impression: Drug abuse, Endotracheally intubated Altered mental status Qualifiers: Altered mental status type: unspecified Qualified Code(s): R41.82 - Altered mental status, unspecified - Discharge Information Referrals: PCP,None [Primary Care Provider] - Forms: ED Department Discharge Sepsis Event Note (ED) - Evaluation Sepsis Screening Result: No Definite Risk <Carolina Crowley - Last Filed: 04/18/20 03:19> - My Orders Last 24 Hours: My Active Orders 04/17/20 08:30 Initiate/Renew Violent-Self Destructive Restraints >/=18yo Q4H - Assessment/Plan Last 24 Hours: My Active Orders 04/17/20 08:30 Initiate/Renew Violent-Self Destructive Restraints >/=18yo Q4H
[2020-04-17] MEDS ORDERED: Haloperidol Lactate 5 MG/ML SDV IM ONE (07:42)
[2020-04-17] MEDS ORDERED: diphenhydrAMINE 50 MG/ML SDV IVPUSH ONE (07:42)
--- NOTE | 2020-04-17 07:55 | CR ---
PROCEDURE INFORMATION: Exam: XR Chest, 1 View Exam date and time: 04/17/2020 7:48 AM Age: 39 years old Clinical indication: Device placement; Additional info: Post intubation TECHNIQUE: Imaging protocol: XR of the chest Views: 1 view. COMPARISON: No relevant prior studies available. FINDINGS: Tubes, catheters and devices: Endotracheal tube is in place with tip approximately 3 cm above the bruno. Nasogastric tube is present with tip in the stomach. Lungs: Hypoinflation of the lungs which accentuates pulmonary markings. Mild infiltrate in the upper lungs cannot be excluded. Pleural space: Unremarkable. No pleural effusion. No pneumothorax. Heart/Mediastinum: Unremarkable. No cardiomegaly. Bones/joints: Unremarkable. IMPRESSION: Hypoinflation of the lungs which accentuates pulmonary markings. Mild infiltrate in the upper lungs cannot be excluded. Remainder of findings as described above.
[2020-04-17] MEDS ORDERED: Midazolam 50 MG in Sodium Chloride 0.9% 40 ML IV SCH (08:30)
[2020-04-17] MEDS: propofoL 100 ML IV SCH ×2 (09:09→10:46)
== END 2020-04-17 11:20 ==
LOC: DL.ED 06:14
DX: R41.82 Altered mental status, unspecified (principal); F15.10 Other stimulant abuse, uncomplicated; F14.10 Cocaine abuse, uncomplicated; Z20.828 Contact with and (suspected) exposure to other viral communicable diseases
CPT/HCPCS: 31500; 36415; 51702; 70450; 71045; 80053; 80305-QW; 80307; 81001; 82150; 83690; 84484; 85025; 93005; 99285; 99285-25; J1200; J1630; J2060; J2250; J2704; U0002